=== PATIENT | female | born 1970 | race Caucasian/White ===

== ENCOUNTER → 2019-08-28 | Outpatient (CLI) | payer MEDICAID ==
--- NOTE | 2019-08-29 09:13 | US ---
DATE OF SERVICE: 08/28/19 CLINICAL DATA: Abnormal uterine and vaginal bleeding, unspecified. PELVIC ULTRASOUND: The uterus measures 8.5 x 5.0 x 5.9 cm. There is a 1.1 cm rounded hypoechoic focus within the anterior uterine segment consistent in appearance with a uterine leiomyoma. The remainder of the uterus is mildly heterogeneous in echogenicity. No other uterine masses. The endometrium measures 13 mm in thickness. There are cysts adjacent to the cervix consistent with nabothian cysts. The right ovary measures 2.3 x 1.6 x 1.5 cm. The left ovary measures 1.8 x 1.4 x 1.3 cm. No free fluid. No solid adnexal masses. [id number] [facility]
== END ==
LOC: LB.US 09:41
PROVIDERS: ATTEND Nurse Practitioner Family
DX: N93.9 Abnormal uterine and vaginal bleeding, unspecified (principal); N88.8 Other specified noninflammatory disorders of cervix uteri
CPT/HCPCS: 76830; 76856